=== PATIENT | female | born 1945 | race Two or more races ===

== ENCOUNTER 2016-11-27 07:07 | Day surgery (SDC) | payer OTHER, MEDICAID ==
[2016-11-27] MEDS ORDERED: NS 1000 ML 1,000 ML ONE (07:22)
[2016-11-27] MEDS ORDERED: DIPRIVAN VIAL 20 ML ONE (09:02)
[2016-11-27 10:02] VITALS: BP 120/62
== END 2016-11-27 09:45 | disposition home or self-care (01) ==
LOC: SURG1 07:07
PROVIDERS: ATTEND Internal Medicine Gastroenterology
PROC: 0DJD8ZZ Inspection of Lower Intestinal Tract, Via Natural or Artificial Opening Endoscopic (ICD-10-PCS; principal; 2016-11-27 08:15)
PROC: 0DBL8ZX Excision of Transverse Colon, Via Natural or Artificial Opening Endoscopic, Diagnostic (ICD-10-PCS; principal; 2016-11-27 08:15)
PROC: 0DBH8ZX Excision of Cecum, Via Natural or Artificial Opening Endoscopic, Diagnostic (ICD-10-PCS; principal; 2016-11-27 08:15)
DX: Z12.11 Encounter for screening for malignant neoplasm of colon (principal); K64.0 First degree hemorrhoids; K63.5 Polyp of colon
CPT/HCPCS: 99100; A4217; J3490

== ENCOUNTER 2017-01-15 07:43 | Day surgery (SDC) | payer OTHER, MEDICAID ==
[2017-01-15] MEDS ORDERED: D5 LR 1000 ML 1,000 ML IV ONE (07:57)
[2017-01-15] MEDS ORDERED: DIPRIVAN VIAL 20 ML ONE (10:03)
[2017-01-15 10:45] VITALS: BP 120/64
== END 2017-01-15 10:40 | disposition home or self-care (01) ==
LOC: SURG1 07:43
PROVIDERS: ATTEND Internal Medicine Gastroenterology
PROC: 0DB68ZX Excision of Stomach, Via Natural or Artificial Opening Endoscopic, Diagnostic (ICD-10-PCS; principal; 2017-01-15 10:30)
PROC: 0DJ08ZZ Inspection of Upper Intestinal Tract, Via Natural or Artificial Opening Endoscopic (ICD-10-PCS; principal; 2017-01-15 10:30)
PROC: 0DB88ZX Excision of Small Intestine, Via Natural or Artificial Opening Endoscopic, Diagnostic (ICD-10-PCS; principal; 2017-01-15 10:30)
PROC: 0D757ZZ Dilation of Esophagus, Via Natural or Artificial Opening (ICD-10-PCS; principal; 2017-01-15 10:30)
DX: R13.19 Other dysphagia (principal); R10.13 Epigastric pain; K21.9 Gastro-esophageal reflux disease without esophagitis; K20.8 Other esophagitis; K22.2 Esophageal obstruction; K44.9 Diaphragmatic hernia without obstruction or gangrene; K29.60 Other gastritis without bleeding
CPT/HCPCS: A4217; J3490; J7120